=== PATIENT | female | born 1975 | race Caucasian/White ===

== ENCOUNTER 2019-02-13 02:11 | Emergency (ER) | payer OTHER ==
[~2019-02-13] VITALS: Ht 152.4 cm; Wt 64.5 kg
[2019-02-13] MEDS ORDERED: ALBU8.5H8 IH (02:24)
[2019-02-13] MEDS ORDERED: MONT10TA21 PO (02:24)
[2019-02-13 04:10] VITALS: BP 117/81
[2019-02-13] MEDS ORDERED: ACETAMINOPHEN 500 MG TABLET PO ONE (04:15)
[2019-02-13] MEDS ORDERED: ONDANSETRON HCL 4 MG TABLET PO ONE (04:15)
== END 2019-02-13 04:26 | disposition home or self-care (01) ==
LOC: EMS 02:13
DX: S09.90XA Unspecified injury of head, initial encounter (principal); J45.909 Unspecified asthma, uncomplicated; Z88.6 Allergy status to analgesic agent; Z79.899 Other long term (current) drug therapy; W22.8XXA Striking against or struck by other objects, initial encounter; Y93.89 Activity, other specified; Y92.89 Other specified places as the place of occurrence of the external cause; Y99.8 Other external cause status
CPT/HCPCS: 99283; Q0162

== ENCOUNTER 2024-10-15 20:06 | Emergency (ER) | payer OTHER ==
[~2024-10-15] VITALS: Ht 149.9 cm; Wt 61.8 kg
[~2024-10-15 20:06] MED LIST: ALBU8.5H8 IH; MONT-35 PO
[2024-10-15 20:08] VITALS: TEMP 98.8
[2024-10-15] MEDS ORDERED: MONT-40 PO (20:30)
[2024-10-15] MEDS ORDERED: ALBU18HF12 IH ×2 (20:30→22:18)
[2024-10-15] MEDS ORDERED: FLUT16H NASAL (20:30)
[2024-10-15] MEDS ORDERED: CETI10TA58 PO (20:30)
[2024-10-15] MEDS ORDERED: OMEP40CA21 PO (20:30)
[2024-10-15] MEDS ORDERED: MEDR5TAB5 PO (20:30)
[2024-10-15] MEDS ORDERED: FERR-72 PO (20:30)
[2024-10-15 20:44] LABS: BASOPHILS % (AUTO) 0.5 % (0.0-2.0); EOSINOPHILS % (AUTO) 1.7 % (1.0-6.0); HEMATOCRIT 39.6 % (36-46); HEMOGLOBIN 13.2 g/dL (12.0-16.0); LYMPHOCYTES # (AUTO) 2.8 K/uL (1.0-4.8); LYMPHOCYTES % (AUTO) 26.5 % (22.0-44.0); MEAN CORPUSCULAR HEMOGLOBIN 27.4 pg (26.0-34.0); MEAN CORPUSCULAR HGB CONC 33.3 G/dL (31.0-37.0); MEAN CORPUSCULAR VOLUME 82 fL (80-100); MONOCYTES # (AUTO) 0.5 K/uL (0.1-1.0); MONOCYTES % (AUTO) 4.7 % (2.0-9.0); NEUTROPHILS # (AUTO) 6.9 K/uL (1.8-7.7); NEUTROPHILS % (AUTO) 66.6 % (40.0-70.0); PLATELET COUNT (AUTO) 244 K/uL (150-450); RED CELL DISTRIBUTION WIDTH 27.8 % (11.5-14.5); WHITE BLOOD COUNT (AUTO) 10.4 K/uL (4.5-11.0)
[2024-10-15 20:53] LABS: ANION GAP 7 mmol/L (8-16); CALCIUM, TOTAL 8.5 mg/dL (8.8-10.5); CARBON DIOXIDE 25 mmol/L (22-29); CHLORIDE 105 mmol/L (98-107); CREATININE 0.73 mg/dL (0.60-1.30); GLOMERULAR FILTR. RATE CALC > 60 mL/min (>60); GLUCOSE,RANDOM 97 mg/dL (70-110); POTASSIUM 3.3 mmol/L (3.5-5.1); SODIUM SERUM 137 mmol/L (136-145); UREA NITROGEN, BLOOD 12 mg/dL (7-18)
[2024-10-15 21:17] LABS: TROPONIN I-HIGH SENSITIVITY 4 ng/L (<51)
[2024-10-15 21:31] LABS: PLATELET MORPHOLOGY COMMENT GIANT PLTS PRESENT; RBC MORPHOLOGY COMMENT ABNORMAL RBC MORPH
[2024-10-15] MEDS: IPRATROPIUM BROMIDE 0.5 MG/2.5 ML NEB SOLUTION NEB ONE (21:34)
[2024-10-15] MEDS: ALBUTEROL SULFATE 2.5 MG/0.5 ML NEB SOLUTION NEB ONE (21:35)
[2024-10-15 21:40] VITALS: PULSE 89; RESP 17; O2SAT 99
[2024-10-15 21:41] VITALS: PULSE 89; RESP 17; O2SAT 99
[2024-10-15 22:07] LABS: COVID AG,FIA SOURCE NASAL SWAB
[2024-10-15] MEDS ORDERED: PRED-554 PO (22:18)
[2024-10-15] MEDS: PredniSONE 20 MG TABLET PO ONE (22:23)
[2024-10-15 22:28] VITALS: BP 119/87; PULSE 82; RESP 17; O2SAT 99
[2024-10-15 22:30] LABS: SARS-COV2 (COVID) ANTIGEN,FIA Negative (Negative)
[2024-10-15 22:31] LABS: INFLUENZA TYPE A NEGATIVE FOR TYPE A (NEGATIVE); INFLUENZA TYPE B NEGATIVE FOR TYPE B (NEGATIVE)
== END 2024-10-15 22:31 | disposition home or self-care (01) ==
LOC: EMS 20:06
DX: J45.909 Unspecified asthma, uncomplicated (principal); Z20.822 Contact with and (suspected) exposure to COVID-19; Z88.6 Allergy status to analgesic agent; Z79.899 Other long term (current) drug therapy
CPT/HCPCS: 99285; 71045; 87426; 80048; 83880; 84484; 84703; 85025; 87804; 36415; 94640; 93005; J7512; 94060; J7613